=== PATIENT | female | born 1945 | race Caucasian/White ===

== ENCOUNTER 2023-05-16 14:39 | Inpatient (IN) | payer MEDICARE ==
[2023-05-16 15:03] LABS: BASOPHILS ABSOLUTE AUTO 0.04 10^3/uL (0.00-0.50); BASOPHILS PERCENT AUTO 0.5 % (0-1); EOSINOPHILS ABSOLUTE AUTO 0.15 10^3/uL (0.00-1.50); EOSINOPHILS PERCENT AUTO 1.9 % (0-6); HEMATOCRIT 39.6 % (37.0-47.0); LYMPHOCYTES ABSOLUTE AUTO 2.76 10^3/uL (0.60-5.00); LYMPHOCYTES PERCENT AUTO 34.9 % (24-44); MEAN CORPUSCULAR HEMOGLOBIN 30.4 pg (27.0-32.0); MEAN CORPUSCULAR HGB CONC 32.8 g/dL (32.0-36.0); MEAN CORPUSCULAR VOLUME 92.7 fL (83.0-97.0); MONOCYTES ABSOLUTE AUTO 0.91 10^3/uL (0.00-1.50); MONOCYTES PERCENT AUTO 11.5 % (0-10); NEUTROPHILS ABSOLUTE AUTO 4.04 x10^3/uL (1.80-8.00); NEUTROPHILS PERCENT AUTO 51.2 % (41-71); PLATELET COUNT,PLT 265 10^3/uL (150-400); RED BLOOD CELL COUNT 4.27 x10^6/uL (4.00-5.50); WHITE BLOOD CELL COUNT,WBC 7.9 10^3/uL (4.0-11.0)
[2023-05-16 15:08] LABS: APPEARANCE,URINE CLEAR (CLEAR); BILIRUBIN,URINE NEGATIVE (NEGATIVE); COLOR,URINE YELLOW (YELLOW); GLUCOSE,URINE NEGATIVE (NEGATIVE); KETONES,URINE 15 mg/dL (NEGATIVE); LEUKOCYTE ESTERASE,URINE NEGATIVE (NEGATIVE); NITRITE,URINE NEGATIVE (NEGATIVE); OCCULT BLOOD,URINE NEGATIVE (NEGATIVE); PH,URINE 7.5 (4.5-8.0); PROTEIN,URINE 100 mg/dL (NEGATIVE)
[2023-05-16 15:14] LABS: BACTERIA,URINE NOT SEEN /HPF (NOT SEEN); EPITHELIAL CELLS,URINE FEW /HPF (NOT SEEN); MUCUS,URINE NOT SEEN /HPF (NOT SEEN); RBC,URINE NOT SEEN /HPF (0-5); WBC,URINE NOT SEEN /HPF (0-5)
[2023-05-16 15:26] LABS: ALANINE AMINOTRANSFERASE,ALT 14 U/L (12-78); ALBUMIN 3.4 g/dL (3.4-5.0); ALKALINE PHOSPHATASE 117 U/L (46-116); ASPARTATE AMNIOTRANSFERASE,AST 17 U/L (15-37); BILIRUBIN TOTAL 2.3 mg/dL (0.0-1.0); BLOOD UREA NITROGEN,BUN 12 mg/dL (7-18); C-REACTIVE PROTEIN 1.08 mg/dL (<=0.30); CALCIUM 9.4 mg/dL (8.4-10.1); CARBON DIOXIDE,CO2 31 mmol/L (21-32); CHLORIDE,CL 103 mEq/L (98-106); CHOLESTEROL HDL 55 mg/dL (60-90); CHOLESTEROL LDL CALCULATED 100 mg/dL (0-99); CHOLESTEROL TOTAL 167 mg/dL (0-199); CREATININE 0.9 mg/dL (0.6-1.0); ESTIMATED GFR 66 mL/min (>=60); GLUCOSE RANDOM 116 mg/dL (75-99); POTASSIUM,K 3.7 mEq/L (3.5-5.0); PRO B-TYPE NATRIUR PEPT,BNPPRO 936 pg/mL (0-1000); PROTEIN TOTAL,TP 7.7 g/dL (6.4-8.2); SODIUM,NA 144 mEq/L (136-145); TRIGLYCERIDES 61 mg/dL (30-150); TSH ULTRASENSITIVE 1.82 uIU/mL (0.36-5.60)
[2023-05-16] MEDS ORDERED: Docusate Sodium 100 MG Cap PO PRN (16:14)
[2023-05-16] MEDS ORDERED: Sodium Chloride 0.9% 10 ML Syringe FLUSH PRN (16:14)
[2023-05-16] MEDS ORDERED: Ondansetron 4 MG Tab.DIS PO PRN (16:14)
[2023-05-16] MEDS ORDERED: Ondansetron 4 MG/2 ML SDV IV PRN (16:14)
[2023-05-16] MEDS ORDERED: Polyethylene Glycol 3350 Powder 17 GM Packet PO PRN (16:14)
[2023-05-16] MEDS: Bumetanide 2.5 MG/10 ML MDV IVPUSH SCH (16:38)
[2023-05-16] MEDS: Diltiazem 120 MG Cap.CD PO SCH (16:38)
[2023-05-16] MEDS: cefTRIAXone 1 GM Vial IVPUSH SCH (16:44)
[2023-05-16] MEDS: Losartan 100 MG Tab PO SCH (16:46)
[2023-05-16] MEDS ORDERED: Loperamide 2 MG Cap PO PRN (19:06)
[2023-05-16] MEDS ORDERED: Non-Formulary Medication 1 Each (Glucosamine [Glucosamine Sulfate] 500 MG Cap) PO PRN (19:06)
[2023-05-16] MEDS ORDERED: Apixaban 5 MG Tab PO ONE (19:06)
[2023-05-16] MEDS: Oxybutynin 5 MG Tab PO SCH (19:47)
[2023-05-16] MEDS: diphenhydrAMINE 25 MG Cap PO SCH (19:47)
[2023-05-16] MEDS: Acetaminophen 325 MG Tab PO PRN (19:55)
[2023-05-16] MEDS: Formoterol/Mometasone 100-5 MCG 8.8 GM Inhaler IH SCH (20:15)
[2023-05-17] MEDS: Pantoprazole 40 MG Tab.CR PO SCH (06:49)
[2023-05-17 07:10] LABS: BASOPHILS ABSOLUTE AUTO 0.06 10^3/uL (0.00-0.50); EOSINOPHILS ABSOLUTE AUTO 0.12 10^3/uL (0.00-1.50); HEMATOCRIT 34.6 % (37.0-47.0); HEMOGLOBIN 11.4 g/dL (12.0-16.0); IMMATURE GRAN ABSOLUTE AUTO 0.01 10^3/uL (0.00-0.49); IMMATURE GRAN PERCENT AUTO 0.2 % (0.0-4.9); LYMPHOCYTES ABSOLUTE AUTO 1.97 10^3/uL (0.60-5.00); LYMPHOCYTES PERCENT AUTO 33.3 % (24-44); MEAN CORPUSCULAR HEMOGLOBIN 30.3 pg (27.0-32.0); MEAN CORPUSCULAR HGB CONC 32.9 g/dL (32.0-36.0); MONOCYTES ABSOLUTE AUTO 0.75 10^3/uL (0.00-1.50); MONOCYTES PERCENT AUTO 12.7 % (0-10); NEUTROPHILS PERCENT AUTO 50.8 % (41-71); PLATELET COUNT,PLT 234 10^3/uL (150-400); RED BLOOD CELL COUNT 3.76 x10^6/uL (4.00-5.50); WHITE BLOOD CELL COUNT,WBC 5.9 10^3/uL (4.0-11.0)
[2023-05-17 07:47] LABS: ALBUMIN 2.7 g/dL (3.4-5.0); BILIRUBIN TOTAL 2.1 mg/dL (0.0-1.0); CALCIUM 8.4 mg/dL (8.4-10.1); CREATININE 0.9 mg/dL (0.6-1.0); EST CRCL DRUG DOSING (CG) 43.99 mL/min; MAGNESIUM 1.9 mg/dL (1.8-2.4); POTASSIUM,K 3.1 mEq/L (3.5-5.0); PROTEIN TOTAL,TP 6.3 g/dL (6.4-8.2)
[2023-05-17] MEDS: Oxybutynin 5 MG Tab PO SCH ×2 (07:47→19:45)
[2023-05-17] MEDS: Losartan 100 MG Tab PO SCH (07:47)
[2023-05-17] MEDS: Ascorbic Acid 500 MG Tab PO SCH (07:47)
[2023-05-17] MEDS: Apixaban 5 MG Tab PO SCH ×2 (07:48→19:45)
[2023-05-17] MEDS: Diltiazem 120 MG Cap.CD PO SCH (07:48)
[2023-05-17] MEDS: Torsemide 20 MG Tab PO SCH (07:48)
[2023-05-17] MEDS: Cranberry 500 MG Cap PO SCH (07:48)
[2023-05-17] MEDS: Cholecalciferol (Vitamin D3) 5,000 UNIT Tab PO SCH (07:48)
[2023-05-17] MEDS: Vitamin E (dl-alpha-tocopherol acetate) 400 Unit Cap PO SCH (07:48)
[2023-05-17] MEDS: Bumetanide 2.5 MG/10 ML MDV IVPUSH SCH (07:50)
[2023-05-17] MEDS ORDERED: MELATONIN PO SCH (08:00)
[2023-05-17] MEDS ORDERED: PYRIDOXINE HCL PO SCH (08:00)
[2023-05-17] MEDS ORDERED: FLAXSEED OIL 1000 MG PO SCH (08:00)
[2023-05-17] MEDS ORDERED: [UNRECOGNIZED DRUG - OTHER] PO SCH (08:00)
[2023-05-17] MEDS ORDERED: Non-Formulary Medication 1 Each (Calcium Carb/D3/Magnesium/Zinc [Cal Mag Zinc + D3] 1 EACH PO SCH (08:00)
[2023-05-17] MEDS ORDERED: Non-Formulary Medication 1 Each (Fish Oil/Omega-3 Fatty Acids [Fish Oil 1,000 Mg] 1 GM Cap PO SCH (08:00)
[2023-05-17] MEDS: Formoterol/Mometasone 100-5 MCG 8.8 GM Inhaler IH SCH ×2 (08:08→19:57)
[2023-05-17] MEDS: Potassium Chloride 10 MEQ Tab.ER PO SCH ×2 (10:33→16:35)
[2023-05-17] MEDS: cefTRIAXone 1 GM Vial IVPUSH SCH (15:44)
[2023-05-17] MEDS: diphenhydrAMINE 25 MG Cap PO SCH (19:45)
[2023-05-18] MEDS: Acetaminophen 325 MG Tab PO PRN (01:42)
[2023-05-18] MEDS: Pantoprazole 40 MG Tab.CR PO SCH (06:00)
[2023-05-18 07:14] LABS: BASOPHILS ABSOLUTE AUTO 0.04 10^3/uL (0.00-0.50); BASOPHILS PERCENT AUTO 0.5 % (0-1); EOSINOPHILS ABSOLUTE AUTO 0.19 10^3/uL (0.00-1.50); EOSINOPHILS PERCENT AUTO 2.5 % (0-6); HEMATOCRIT 36.3 % (37.0-47.0); IMMATURE GRAN ABSOLUTE AUTO 0.01 10^3/uL (0.00-0.49); IMMATURE GRAN PERCENT AUTO 0.1 % (0.0-4.9); LYMPHOCYTES ABSOLUTE AUTO 3.19 10^3/uL (0.60-5.00); LYMPHOCYTES PERCENT AUTO 42.1 % (24-44); MEAN CORPUSCULAR HEMOGLOBIN 30.5 pg (27.0-32.0); MEAN CORPUSCULAR HGB CONC 33.1 g/dL (32.0-36.0); MEAN CORPUSCULAR VOLUME 92.1 fL (83.0-97.0); MONOCYTES ABSOLUTE AUTO 0.84 10^3/uL (0.00-1.50); MONOCYTES PERCENT AUTO 11.1 % (0-10); NEUTROPHILS PERCENT AUTO 43.7 % (41-71); PLATELET COUNT,PLT 260 10^3/uL (150-400); RED BLOOD CELL COUNT 3.94 x10^6/uL (4.00-5.50); WHITE BLOOD CELL COUNT,WBC 7.6 10^3/uL (4.0-11.0)
[2023-05-18 07:35] LABS: CALCIUM 8.6 mg/dL (8.4-10.1); CREATININE 1.1 mg/dL (0.6-1.0); EST CRCL DRUG DOSING (CG) 35.99 mL/min; MAGNESIUM 1.9 mg/dL (1.8-2.4); POTASSIUM,K 3.2 mEq/L (3.5-5.0)
[2023-05-18] MEDS ORDERED: Bumetanide 2.5 MG/10 ML MDV IVPUSH SCH (08:00)
[2023-05-18] MEDS ORDERED: Ibuprofen 200 MG Tab PO PRN (08:26)
[2023-05-18] MEDS: Diltiazem 120 MG Cap.CD PO SCH (08:26)
[2023-05-18] MEDS: Ascorbic Acid 500 MG Tab PO SCH (08:27)
[2023-05-18] MEDS: Cranberry 500 MG Cap PO SCH (08:27)
[2023-05-18] MEDS: Vitamin E (dl-alpha-tocopherol acetate) 400 Unit Cap PO SCH (08:27)
[2023-05-18] MEDS: Oxybutynin 5 MG Tab PO SCH ×2 (08:27→19:25)
[2023-05-18] MEDS: Cholecalciferol (Vitamin D3) 5,000 UNIT Tab PO SCH (08:27)
[2023-05-18] MEDS: Torsemide 20 MG Tab PO SCH (08:27)
[2023-05-18] MEDS: Potassium Chloride 10 MEQ Tab.ER PO SCH ×2 (08:28→17:00)
[2023-05-18] MEDS: Apixaban 5 MG Tab PO SCH ×2 (08:30→19:25)
[2023-05-18] MEDS: Losartan 100 MG Tab PO SCH (09:03)
[2023-05-18] MEDS: Formoterol/Mometasone 100-5 MCG 8.8 GM Inhaler IH SCH ×2 (09:13→20:00)
[2023-05-18] MEDS: Ceres/Mineral Oil/Petrolatum/Wool Alcohol Cream 113 GM Tube TOP SCH ×3 (09:21→22:30)
[2023-05-18] MEDS: cefTRIAXone 1 GM Vial IVPUSH SCH (15:57)
[2023-05-18] MEDS: diphenhydrAMINE 25 MG Cap PO SCH (19:25)
[2023-05-19] MEDS: Pantoprazole 40 MG Tab.CR PO SCH (06:39)
[2023-05-19 07:22] LABS: BASOPHILS ABSOLUTE AUTO 0.06 10^3/uL (0.00-0.50); BASOPHILS PERCENT AUTO 0.8 % (0-1); EOSINOPHILS ABSOLUTE AUTO 0.24 10^3/uL (0.00-1.50); HEMATOCRIT 39.5 % (37.0-47.0); HEMOGLOBIN 13.1 g/dL (12.0-16.0); IMMATURE GRAN ABSOLUTE AUTO 0.01 10^3/uL (0.00-0.49); IMMATURE GRAN PERCENT AUTO 0.1 % (0.0-4.9); LYMPHOCYTES ABSOLUTE AUTO 2.66 10^3/uL (0.60-5.00); LYMPHOCYTES PERCENT AUTO 33.7 % (24-44); MEAN CORPUSCULAR HEMOGLOBIN 30.6 pg (27.0-32.0); MEAN CORPUSCULAR HGB CONC 33.2 g/dL (32.0-36.0); MEAN CORPUSCULAR VOLUME 92.3 fL (83.0-97.0); MONOCYTES ABSOLUTE AUTO 0.92 10^3/uL (0.00-1.50); MONOCYTES PERCENT AUTO 11.6 % (0-10); NEUTROPHILS ABSOLUTE AUTO 4.01 x10^3/uL (1.80-8.00); NEUTROPHILS PERCENT AUTO 50.8 % (41-71); PLATELET COUNT,PLT 288 10^3/uL (150-400); RED BLOOD CELL COUNT 4.28 x10^6/uL (4.00-5.50); WHITE BLOOD CELL COUNT,WBC 7.9 10^3/uL (4.0-11.0)
[2023-05-19] MEDS: Apixaban 5 MG Tab PO SCH (07:41)
[2023-05-19] MEDS: Cholecalciferol (Vitamin D3) 5,000 UNIT Tab PO SCH (07:41)
[2023-05-19] MEDS: Diltiazem 120 MG Cap.CD PO SCH (07:41)
[2023-05-19] MEDS: Vitamin E (dl-alpha-tocopherol acetate) 400 Unit Cap PO SCH (07:41)
[2023-05-19] MEDS: Torsemide 20 MG Tab PO SCH (07:41)
[2023-05-19] MEDS: Potassium Chloride 10 MEQ Tab.ER PO SCH (07:41)
[2023-05-19] MEDS: Cranberry 500 MG Cap PO SCH (07:41)
[2023-05-19] MEDS: Ceres/Mineral Oil/Petrolatum/Wool Alcohol Cream 113 GM Tube TOP SCH ×2 (07:42→14:02)
[2023-05-19] MEDS: Losartan 100 MG Tab PO SCH (07:42)
[2023-05-19] MEDS: Ascorbic Acid 500 MG Tab PO SCH (07:42)
[2023-05-19] MEDS: Oxybutynin 5 MG Tab PO SCH (07:42)
[2023-05-19] MEDS: Formoterol/Mometasone 100-5 MCG 8.8 GM Inhaler IH SCH (07:43)
[2023-05-19 07:57] LABS: EST CRCL DRUG DOSING (CG) 39.59 mL/min; MAGNESIUM 1.9 mg/dL (1.8-2.4); POTASSIUM,K 4.1 mEq/L (3.5-5.0)
[2023-05-19] MEDS: cefTRIAXone 1 GM Vial IVPUSH SCH (15:46)
== END 2023-05-19 16:15 | disposition home or self-care (01) | DRG 602 ==
LOC: CC.MS 14:39 → CC.FCMC 14:39 → UNDOADMIN 15:58 → CC.MS 15:58
PROVIDERS: ADMIT Nurse Practitioner; ATTEND Nurse Practitioner
DX: L03.115 Cellulitis of right lower limb (principal); I50.31 Acute diastolic (congestive) heart failure; I48.91 Unspecified atrial fibrillation; I11.0 Hypertensive heart disease with heart failure; E87.6 Hypokalemia; T50.905A Adverse effect of unspecified drugs, medicaments and biological substances, initial encounter; H91.90 Unspecified hearing loss, unspecified ear; J45.909 Unspecified asthma, uncomplicated; Z88.6 Allergy status to analgesic agent; Z88.5 Allergy status to narcotic agent; Z88.8 Allergy status to other drugs, medicaments and biological substances; I50.9 Heart failure, unspecified; Z79.899 Other long term (current) drug therapy
CPT/HCPCS: 36415; 71046; 80048; 80053; 80061; 81001; 83735; 83880; 84443; 84484; 85025; 86140; 93005; 93010; 93306; 94640; 97161-GP; 99223; 99232; 99233; 99239; A9270-GY; J0696; J3490